=== PATIENT | female | born 1970 | race Caucasian/White ===

== ENCOUNTER 2019-01-11 10:32 | Emergency (ER) | payer OTHER, SELFPAY ==
[2019-01-11 10:34] VITALS: BP 120/72; PULSE 110; RESP 22; TEMP 36.4; O2SAT 96; BMI 20.2
--- NOTE | 2019-01-11 11:09 | CT_ITS ---
STUDY: CT BRAIN WITHOUT CONTRAST REASON FOR EXAM: Female, 49 years old. Head injury. RADIATION DOSAGE (If Supplied By Facility): CTDIvol = ( 60.81 ) mGy, DLP = ( 1067.08 ) mGycm TECHNIQUE: Transaxial CT imaging of the brain was performed without administration of intravenous contrast material. Individualized dose optimization techniques were used for this CT. COMPARISON: No relevant priors. FINDINGS: Normal soft tissue structures. Normal calvarium. Normal size ventricles and extra-axial spaces for the patient's age. Normal white matter tracts of the cerebral hemispheres. Normal basal ganglia and thalami. Normal brainstem. Normal cerebellum. There is no intracranial hemorrhage. There are no findings of an acute ischemic infarction. Normal visualized paranasal sinuses. CT/Brain/Head without Contrast IMPRESSION: Normal unenhanced CT scan of the brain. Electronically Signed: Allen Fernandes, at 11:35 EDT , Service support ,
--- NOTE | 2019-01-11 12:26 | ED.DCSUM_ITS ---
- ER Visit Summary Date of Service: 01/11/19 Chief Complaint: Head injury History of Present Illness: The patient is a 49 F who tells me that in 2016 she fell striking the back of her head on a step. She states that she was seen at a clinic. She was told to go home and eat right. She tells me that since that time she continues to have memory loss. 3 weeks ago she decided to start exercising so she got on a trampoline was jumping and states she got pain in the back of her head and believes that she fractured her skull again. She was never told that she had a skull fracture but she believes she did and she believes that by jumping a trampoline she reinjured it resulting in new fracture. She st ates that she is developed stuttering as well as diarrhea she states that her muscles are cramping. She states that she is fired her primary care doctor because they do not know what they are doing. Physical Examination: Afebrile vital signs are stable Gen: Well-nourished well-developed Head: Normocephalic atraumatic Eyes: Perrl EOMI ENT: TMs clear no rhinorrhea moist mucous membranes Neck: Supple no lymphadenopathy no JVD nontender CVS: Regular rate rhythm no murmurs normal S1-S2 Respiratory: No distress clear to auscultation bilaterally chest nontender Abdomen: Soft nontender nondistended normal bowel sounds no masses Back: Nontender Extremity: Nontender no edema Skin: Normal color no rash Neuro: alert orientated ?3 CN II-XII intact normal strength sensation gait c erebellar Psych: Patient has a very labile affect. At one point she is crying the next point she is angry and cursing. She appears manic. No suicidal homicidal ideation Test Results: CT brain negative Emergency Department Course and Treatment: I think the patient has an underlying mental illness and is probably manic. However she does not wish to address this today. She continues to become very argumentative. After informing her that her CT most likely would be negative screens and ask if she can please have the test. I informed her that when the test is negative she still not be left with these other somatic complaints but she does not wish to speak about that. Once I informed her her test was in fact negative she then tells me it is all due to being mercury toxic. She states the doctor is being leached out of her teeth and she is debated for 30 years about getting them pulled but nobody will order a mercury level on her. I tried to redirect the patient to focus in on her mental state to no avail. At this point there is nothing I can say to her that she will not come back and argue with me but I do not see an acute emergency at this time. I recommend she orally hydrate. I recommend with the diarrhea she bananas for potassium supplementation and she follow-up with primary care. Impression: 1. Diarrhea 2. Headache This note was generated with [employer] dictation software. It may contain incorrect words, spelling, and punctuation that were not noted in review of the chart cornelio or to signing ED Disposition - Plan for ED Patient: Disposition: Home or Assisted Living Instructions: DIARRHEA, Viral (Child) (Adult) Referrals: Lucy Macias, TRAUMA SURGEON-C [Primary Care Provider] - As soon as possible
== END 2019-01-11 12:38 | disposition home or self-care (01) ==
PROVIDERS: Emergency Provider Emergency Medicine; Family Provider Nurse Practitioner Family; PCP Nurse Practitioner Family
DX: R51 Headache (principal); R19.7 Diarrhea, unspecified; J45.909 Unspecified asthma, uncomplicated; Z72.0 Tobacco use; Z79.51 Long term (current) use of inhaled steroids
CPT/HCPCS: 70450; 99282